=== PATIENT | female | born 1955 | race Caucasian/White ===

== ENCOUNTER 2016-08-18 15:22 | Inpatient (IN) | payer BC, OTHER ==
[2016-08-18] MEDS ORDERED: Heparin for STEMI(*) 5,000 UNITS/ML 1 ML VIAL IV ONE (15:23)
[2016-08-18] MEDS ORDERED: Ticagrelor* 90 MG TAB PO ONE (15:24)
[2016-08-18] MEDS ORDERED: Aspirin TAB* 325 MG PO ONE (15:24)
[2016-08-18] MEDS ORDERED: Iohexol 350 (CONTRAST) 200 ML MDV IV ONE (15:28)
[2016-08-18] MEDS ORDERED: nitroGLYCERIN DRIP* 250 ML ONE ×2 (15:28→16:02)
[2016-08-18] MEDS ORDERED: Heparin 2 UNITS/ML IVPREMIX* 3,000 ML IV ONE (15:28)
[2016-08-18] MEDS ORDERED: Lidocaine 1% INJ* 10 MG/ML 30 ML SDV ONE (15:28)
[2016-08-18] MEDS ORDERED: Bivalirudin(*) 250 MG VIAL ONE ×2 (15:31→16:41)
[2016-08-18] MEDS ORDERED: fentaNYL* 50 MCG/ML 2 ML VIAL (100 MCG VIAL) ONE (15:31)
[2016-08-18] MEDS ORDERED: Midazolam* 1 MG/ML 5 ML VIAL (5 MG) ONE (15:31)
[2016-08-18 15:46] LABS: Hematocrit 38 % (35-47); Hemoglobin 12.4 g/dl (12.0-16.0); Mean Corpuscular HGB Conc 32 g/dl (31-36); Mean Corpuscular Hemoglobin 27 pg (27-31); Mean Corpuscular Volume 85 fL (80-97); Mean Platelet Volume 9 um3 (7.4-10.4); Red Blood Count 4.54 10^6/ul (4.0-5.4); Red Cell Distribution Width 16 % (10.5-15); White Blood Count 9.9 10^3/ul (3.5-10.8)
[2016-08-18] MEDS ORDERED: LORazepam INJ* 2 MG/ML 1 ML VIAL ONE (15:52)
[2016-08-18 16:01] LABS: BUN/Creatinine Ratio 21.6 (8-20); Calcium 9.6 mg/dL (8.6-10.3); EGFR African American 75.1 (>60); EGFR Non-African American 58.4 (>60); Globulin 3.6 g/dL (2-4); Potassium 4.3 mmol/L (3.5-5.0); Total Bilirubin 0.5 mg/dL (0.2-1.0); Total Protein 7.6 g/dL (6.4-8.9)
[2016-08-18] MEDS ORDERED: Heparin(*) 1000 UNIT/ML 10 ML VIAL CATH LAB IV ONE (16:02)
[2016-08-18] MEDS ORDERED: VERAPAMIL 2.5 MG/ML 4 ML VIAL ONE (16:02)
[2016-08-18] MEDS ORDERED: Iodixanol* (CONTRAST) 320 MG/ML 100 ML SDV ONE ×2 (16:06→17:03)
[2016-08-18 16:07] LABS: Troponin I 0.77 ng/mL (<0.04)
--- NOTE | 2016-08-18 16:33 | ED ---
Lux Lemons Matthew, scribed for José Root MD on 08/18/16 at 1541 . HPI Cardiac - HPI Summary HPI Summary: A 61 y/o female presents to the ED after syncopating at 15:27. In route to the ED, an EKG was taken, which suggested a STEMI. Associated symptoms include vertigo, sudden dizziness, and syncope. The patient denies chest pain. The patient remembers feeling dizzy while pushing a cart at work before syncopating. She has a Hx of an aortic aneurysm, which is being followed by Dr. Morales at [facility]. She was at work, when the episode happened. 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 - History of Current Complaint Stated Complaint: STEMI Hx Obtained From: Patient Onset/Duration: Started Hours Ago, Atraumatic, Still Present Timing: Lasting Minutes Initial Severity: Moderate Current Severity: None Aggravating Factor(s): Nothing Alleviating Factor(s): Nothing Associated Signs and Symptoms: Positive: Dizziness, Other: - Dizziness; Vertigo. Negative: Chest Pain - Allergy/Home Medications Allergies/Adverse Reactions: Allergies Allergy/AdvReac Type Severity Reaction Status Date / Time No Known Allergies Allergy Verified 04/03/13 09:57 Home Medications: Home Medications Ibuprofen TAB* [Advil TAB*] 800 mg PO Q6H PRN 08/18/16 [History Confirmed ] Levothyroxine TAB* [Synthroid TAB*] 100 mcg PO QAM 08/18/16 [History Confirmed 08/18/16] PARoxetine HCL TAB* [Paxil TAB*] 40 mg PO QAM 08/18/16 [History Confirmed ] PMH/Surg Hx/FS Hx/Imm Hx Endocrine/Hematology History: Reports: Hx Thyroid Disease - HYPO - Cancer History Cancer Type, Location and Year: [facility] - Surgical History Surgery Procedure, Year, and Place: LYMPH NODE BIOPSYS, LUNG BIOPSY, CARPAL ESTEPHANIE, - Family History Family History: Unable to obtain, becaues of STEMI and severity. - Social History Occupation: Employed Full-time Lives: With Family Alcohol Use: None Hx Substance Use: No Substance Use Type: Reports: None Hx Tobacco Use: No Smoking Status (MU): Never Smoked Tobacco Review of Systems Constitutional: Negative Eyes: Negative ENT: Negative Cardiovascular: Negative Negative: Chest Pain Respiratory: Negative Gastrointestinal: Negative Genitourinary: Negative Musculoskeletal: Negative Skin: Negative Neurological: Other - Vertigo, Dizziness, Syncopal Psychological: Normal All Other Systems Reviewed And Are Negative: Yes Physical Exam Triage Information Reviewed: Yes Vital Signs On Initial Exam: Temp Pulse Resp BP Pulse Ox 98.2 F 85 18 110/75 100 08/18/16 15:27 08/18/16 15:27 08/18/16 15:27 08/18/16 15:27 08/18/16 15:27 Vital Signs Reviewed: Yes Appearance: Positive: No Pain Distress Skin: Positive: Warm, Skin Color Reflects Adequate Perfusion, Dry Head/Face: Positive: Normal Head/Face Inspection ENT: Positive: Normal ENT inspection Neck: Positive: Supple, Nontender Respiratory/Lung Sounds: Positive: Clear to Auscultation, Breath Sounds Present Cardiovascular: Positive: RRR Abdomen Description: Positive: Nontender, Soft Bowel Sounds: Positive: Present Musculoskeletal: Positive: Normal, Strength/ROM Intact Neurological: Positive: Alert, Oriented to Person Place, Time Psychiatric: Positive: Anxious Diagnostics - Vital Signs Vital Signs Temp Pulse Resp BP Pulse Ox 08/18/16 15:27 98.2 F 85 18 110/75 100 - Laboratory Lab Results: Lab Results 08/18/16 08/18/16 08/18/16 Range/Units 15:33 15:37 15:37 WBC 9.9 (3.5-10.8) 10^3/ul RBC 4.54 (4.0-5.4) 10^6/ul Hgb 12.4 (12.0-16.0) g/dl Hct 38 (35-47) % MCV 85 (80-97) fL MCH 27 (27-31) pg MCHC 32 (31-36) g/dl RDW 16 H (10.5-15) % Plt Count 245 (150-450) 10^3/ul MPV 9 (7.4-10.4) um3 Neut % (Auto) 63.9 (38-83) % Lymph % (Auto) 22.9 L (25-47) % Sumner % (Auto) 9.6 H (1-9) % Eos % (Auto) 3.4 (0-6) % Baso % (Auto) 0.2 (0-2) % Absolute Neuts (auto) 6.3 (1.5-7.7) 10^3/ul Absolute Lymphs (auto) 2.3 (1.0-4.8) 10^3/ul Absolute Monos (auto) 1.0 H (0-0.8) 10^3/ul Absolute Eos (auto) 0.3 (0-0.6) 10^3/ul Absolute Basos (auto) 0 (0-0.2) 10^3/ul Absolute Nucleated RBC 0 10^3/ul Nucleated RBC % 0 INR (Anticoag Therapy) 0.91 (0.89-1.11) APTT 33.5 (26.0-36.3) seconds Sodium (133-145) mmol/L Potassium (3.5-5.0) mmol/L Chloride (101-111) mmol/L Carbon Dioxide (22-32) mmol/L Anion Gap (2-11) mmol/L BUN (6-24) mg/dL Creatinine (0.51-0.95) mg/dL Est GFR ( Amer) (>60) Est GFR (Non-Af Amer) (>60) BUN/Creatinine Ratio (8-20) Glucose (70-100) mg/dL Lactic Acid (0.5-2.0) mmol/L Calcium (8.6-10.3) mg/dL Total Bilirubin (0.2-1.0) mg/dL AST (13-39) U/L ALT (7-52) U/L Alkaline Phosphatase (34-104) U/L Total Creatine Kinase (10-223) U/L CK-MB (CK-2) (0.6-6.3) ng/mL Myoglobin (14.3-65.8) ng/mL Troponin I (<0.04) ng/mL B-Natriuretic Peptide ( - 100) pg/mL Total Protein (6.4-8.9) g/dL Albumin (3.2-5.2) g/dL Globulin (2-4) g/dL Albumin/Globulin Ratio (1-3) LDL Cholesterol Direct mg/dL Blood Type A Positive Antibody Screen Negative 08/18/16 08/18/16 08/18/16 Range/Units 15:37 15:37 15:37 WBC (3.5-10.8) 10^3/ul RBC (4.0-5.4) 10^6/ul Hgb (12.0-16.0) g/dl Hct (35-47) % MCV (80-97) fL MCH (27-31) pg MCHC (31-36) g/dl RDW (10.5-15) % Plt Count (150-450) 10^3/ul MPV (7.4-10.4) um3 Neut % (Auto) (38-83) % Lymph % (Auto) (25-47) % Sumner % (Auto) (1-9) % Eos % (Auto) (0-6) % Baso % (Auto) (0-2) % Absolute Neuts (auto) (1.5-7.7) 10^3/ul Absolute Lymphs (auto) (1.0-4.8) 10^3/ul Absolute Monos (auto) (0-0.8) 10^3/ul Absolute Eos (auto) (0-0.6) 10^3/ul Absolute Basos (auto) (0-0.2) 10^3/ul Absolute Nucleated RBC 10^3/ul Nucleated RBC % INR (Anticoag Therapy) (0.89-1.11) APTT (26.0-36.3) seconds Sodium 132 L (133-145) mmol/L Potassium 4.3 (3.5-5.0) mmol/L Chloride 99 L (101-111) mmol/L Carbon Dioxide 26 (22-32) mmol/L Anion Gap 7 (2-11) mmol/L BUN 21 (6-24) mg/dL Creatinine 0.97 H (0.51-0.95) mg/dL Est GFR ( Amer) 75.1 (>60) Est GFR (Non-Af Amer) 58.4 (>60) BUN/Creatinine Ratio 21.6 H (8-20) Glucose 112 H (70-100) mg/dL Lactic Acid 1.3 (0.5-2.0) mmol/L Calcium 9.6 (8.6-10.3) mg/dL Total Bilirubin 0.50 (0.2-1.0) mg/dL AST 17 (13-39) U/L ALT 10 (7-52) U/L Alkaline Phosphatase 75 (34-104) U/L Total Creatine Kinase 90 (10-223) U/L CK-MB (CK-2) 7.9 H (0.6-6.3) ng/mL Myoglobin 48.0 (14.3-65.8) ng/mL Troponin I 0.77 H* (<0.04) ng/mL B-Natriuretic Peptide 114 H ( - 100) pg/mL Total Protein 7.6 (6.4-8.9) g/dL Albumin 4.0 (3.2-5.2) g/dL Globulin 3.6 (2-4) g/dL Albumin/Globulin Ratio 1.1 (1-3) LDL Cholesterol Direct 87 mg/dL Blood Type Antibody Screen Result Diagrams: 08/18/16 15:37 08/18/16 15:37 Lab Statement: Any lab studies that have been ordered have been reviewed, and results considered in the medical decision making process. - EKG 15:20 Cardiac Rate: Tachycardia - 104 bpm EKG Interpretation: 1mm ST elevation in leads III Disposition - Course Assessment/Plan: ADMIT TO DRAFTSPERSON STABLE DR RAMIREZ. - Diagnoses Provider Diagnoses: STEMI (ST elevation myocardial infarction) During the Visit The Following Alert/Code Occurred: STEMI Discharge - Discharge Plan Condition: Stable Disposition: ADMITTED TO [facility] The documentation as recorded by the Lux joseph Matthew accurately reflects the service I personally performed and the decisions made by me, José Root MD.
[2016-08-18] MEDS ORDERED: Nitroglycerin TAB 0.4 MG* 0.4 MG TAB SL PRN (17:20)
[2016-08-18] MEDS ORDERED: NS 0.9% 1000 ML* 1,000 ML IV SCH (17:30)
[2016-08-18] MEDS ORDERED: Metoprolol Tartrate TAB* 25 MG ONE (17:56)
[2016-08-18] MEDS ORDERED: Atorvastatin* 80 MG TAB ONE (17:57)
[2016-08-18] MEDS ORDERED: Metoprolol Tartrate TAB* 25 MG PO SCH (18:00)
[2016-08-18] MEDS: Atorvastatin* 80 MG TAB PO SCH (18:02)
[2016-08-18] MEDS: LORazepam INJ* 2 MG/ML 1 ML VIAL IV PUSH PRN (18:36)
[2016-08-18 18:37] LABS: TSH (Thyroid Stimulating Horm) 4.79 mcIU/mL (0.34-5.60)
--- NOTE | 2016-08-18 19:15 | RAD ---
Indication: Hypoxemia. STEMI. Comparison: September 18, 2010 Technique: Supine AP 1832 hours Report: Cardiomegaly. Mildly prominent ill-defined central pulmonary vasculature and diffuse mild prominence of the interstitial markings. Grossly clear pleural spaces. RIGHT hilar surgical clips. IMPRESSION: Limited supine exam with suggestion of pulmonary vascular congestion and interstitial edema given the clinical context.
--- NOTE | 2016-08-18 20:02 | CONS ---
CONSULTATION REPORT: DATE OF CONSULT: 08/18/16 REQUESTING PHYSICIAN FOR CONSULTATION: Dr. Whitten. PRIMARY CARE PROVIDER: [facility] in [place]. REASON FOR MEDICAL CONSULTATION: Evaluation and management of comorbid medical conditions. CHIEF COMPLAINT: Syncope. HISTORY OF PRESENT ILLNESS: I refer you to Dr. Whitten's H and P for further details. In short, Ms. Branch is a 61-year-old female patient. She has a history of morbid obesity, hypothyroidism, depression, Hodgkin's lymphoma, history of a thoracic aneurysm measuring 3.7 cm and follows with her primary, history of arthritis, anxiety, depression, and eating disorder according to the daughter. She comes in today. She was at work and she experienced she was feeling nauseous and somewhat diaphoretic. She had an episode where she felt very lightheaded. She had some parts in her hands. She handed it to a co- worker. She tried to sit down, but the next thing she knew she looked up and the co-workers were standing over her. They checked her pulse and it was noted to be in the 40s. They called 911 immediately. There was an EKG obtained en route and it was diagnostic of STEMI. STEMI was called and the patient was taken to the catheterization laboratory. The patient states the events leading up to this, she did not have any chest pain prior to or after this event. She just felt a bit nauseous. She states that she had been feeling nauseous off and on the last couple days and mostly when she ate something. She states that she had not had any chest pain and had never passed out before. She denied having any recent fevers or chills. No changes in medications. States that she had been feeling okay up until the last couple of days. She denied having any shortness of breath. She denied having any cough. No diarrhea. No vomiting. She was taken to the catheterization laboratory. She did have intervention done. I will refer you to Dr. Whitten's report for details. The patient did carry a history of anxiety, depression, and hypothyroidism and we were asked to evaluate. She was evaluated in the postcath setting. She says she feels anxious at this point. She denies having any chest discomfort. She says she is feeling trouble with some shortness of breath. She denies having any abdominal discomfort and denies having anymore nausea. She states she feels better than when she came in. PAST MEDICAL HISTORY: Significant for: 1. Coronary artery disease, new diagnosis at this admission. 2. AR, new diagnosis at this admission. 3. Hypothyroidism. 4. Depression. 5. Anxiety. 6. Eating disorder. 7. Thoracic aneurysm. 8. Arthritis. 9. Hodgkin's lymphoma. SURGICAL HISTORY: 1. She has had a cardiac catheterization done today. 2. Lung biopsy. HOME MEDICATIONS: According to the list that we obtained include: 1. Paxil 40 mg daily. 2. Synthroid 100 mcg daily. 3. Ibuprofen 800 mg p.o. every 6 hours as needed. 4. Albuterol 2 puffs inhaled every 4 hours as needed. ALLERGIES TO MEDICATIONS: Include no known drug allergies. FAMILY HISTORY: Mother had a pacemaker for sick sinus syndrome. Father had a history of CVA. SOCIAL HISTORY: She does not smoke. She does not drink. Surrogate decision maker is her daughter, Mariluz. She is a nurse practitioner. REVIEW OF SYSTEMS: There is no documented fever. She denied having any significant weight change. There was no double vision. There is no ear discharge. There is no rhinorrhea. There is no sore throat. No thyroid enlargement. She denies having any chest pain currently. There is shortness of breath. No orthopnea. No nocturnal dyspnea. There is no abdominal pain. No nausea. No vomiting. No dysuria. No frequency. No loss of consciousness. No pruritus. No skin ulcerations. Review of 14 systems completed, all others negative. PHYSICAL EXAMINATION: Reveals vital signs of blood pressure 107/64 with a pulse of 87, respirations 18, O2 sat 99%, she is now on room air. Her temperature was 97.6. Generally, at this time, Ms. Branch is a 61-year-old female patient. She is lying flat in the ICU bed postcath. She is awake, alert , does not appear to be in any acute distress. HEENT: Head atraumatic and normocephalic. Eyes: EOMs intact. Sclerae are anicteric. Throat: Oral mucosa appears to be moist. No oropharyngeal erythema. Neck: Supple. Heart: Sounds S1, S2. Regular rate and rhythm. Lungs are clear to auscultation bilaterally. It is a limited exam as she cannot sit up. She is flat because of the cath. Abdomen: Soft, flat, nontender. Bowel sounds present. Extremities : Distal CSM checks are intact in the bilateral lower extremities. Distal CSM checks are intact to the right upper extremity as well. She cannot move the extremities currently because she is lying flat per the postcath protocol. Neurologically, she is awake, alert, and oriented x3. She had no gross focal deficits. Skin is intact. She has a radial access site which is clean, dry, and intact to the right wrist and also to the right groin. There is an access site and puncture site is clean, dry, and intact. No bleeding was noted. DIAGNOSTIC STUDIES/LAB DATA: Today revealed WBC of 9.9, RBC of 4.54, hemoglobin 12.4, hematocrit 38, platelet count 245. INR was 0.91. PTT of 32.5. Sodium was 132, potassium of 4.3, chloride 99, bicarb 26, BUN 21, creatinine of 0.97, glucose 112, lactic 1.3, calcium 9.6. Total bili 0.5, AST 17, ALT 10, alk phos 75, CK 90, CK-MB 7.9. Troponin 0.77. BNP of 114. Albumin of 4.0. LDL was 87. TSH is pending. She did have an EKG obtained here today, which showed a normal sinus rhythm with PAC, it is a difficult tracing because there is a lot of artifact, and no ST elevations were noted here. I do not have access to the EKG from the ambulance. At this point, we will try to obtain that. Chest x-ray is pending. Old medical records were reviewed. ASSESSMENT AND PLAN: Ms. Branch is a 61-year-old female patient coming in to the ER today with complaints of syncope. On evaluation by the EMS, was found to have EKG diagnosed with a ST elevation myocardial infarction. She was taken to laboratory technologist, underwent intervention. I refer you to Dr. Whitten's report for details. Hospitalist service was asked to evaluate and consult for management of other medical problems. My recommendations at this point are: 1. ST elevation myocardial infarction and coronary artery disease: We will defer the management of this to Dr. Whitten and his team. 2. Syncope: At this point, I would recommend an echo, which Dr. Whitten is obtaining. We will place her on telemetry. We will continue to monitor. When she is able, we probably can check orthostatic blood pressures. 3. Hypothyroidism: Checking a TSH. Continue Synthroid. 4. Depression/anxiety: We will continue her Paxil. I have ordered p.r.n. lorazepam and will follow. 5. History of thoracic aneurysm: She can follow with her primary. We will monitor. She is not having any chest discomfort at this point. 6. History of eating disorder: She can follow with her primary. 7. Arthritis: She was on ibuprofen. She will need to stop this and switch to Tylenol as she will be on blood thinners. The ibuprofen again may increase her risk for GI bleed while being on Brilinta and aspirin. 8. Hodgkin's lymphoma: Follow up with the primary. 9. DVT prophylaxis: We will defer to Dr. Whitten and his team. 10. Fluids, electrolytes, and nutrition: I would recommend a heart healthy diet. 11. Code status: Full code. TIME SPENT: Time spent on the consult was 60 minutes; greater than half the time was spent [id number] with the patient obtaining my history and physical, other half the time spent going over the plan of care with the patient and implementing plan of care. I did discuss the plan of care with my attending, Dr. Julio; she is in agreement. WANDA ANTHONY NP ADDENDUM TO CONSULTATION REPORT: DATE OF CONSULTATION: 08/18/16 Mrs. Branch is a 61-year-old female who came in after a syncopal episode, was diagnosed with ST elevation AR and urgently taken for cardiac catheterization. Post cardiac catheterization, a consult was requested by Dr. Whitten in regards to patient's history of anxiety and hypothyroidism. For further details of patient's presentation and plan, please see consultation report dictated by Javier Anthony on 08/18/16 with which I agree. ADY JULIO MD CC: Dr. Whitten; [facility] in [place]* [id number]/[facility] #: [id number]/[facility] #: [id number] MTDDestiny
--- NOTE | 2016-08-18 20:18 | CONS ---
CONSULTATION REPORT: ADDENDUM: DATE OF CONSULTATION: 08/18/16 Mrs. Branch is a 61-year-old female who came in after a syncopal episode, was diagnosed with ST elev ation [facility] and urgently taken for cardiac catheterization. Post cardiac catheterization, a consult was requested by Dr. Whitten in regards to patient's history of anxiety and hypothyroidism. For further details of patient's presentation and plan, please see consultation report dictated by Javier chris on 08/18/16 with which I agree. [id number]/[facility] #: [id number]
[2016-08-18] MEDS: Ticagrelor* 90 MG TAB PO SCH (21:11)
[2016-08-18 21:53] LABS: Troponin I 1.52 ng/mL (<0.04)
[2016-08-19] MEDS: LORazepam INJ* 2 MG/ML 1 ML VIAL IV PUSH PRN ×2 (01:20→21:30)
[2016-08-19 06:02] LABS: Hematocrit 34 % (35-47); Hemoglobin 11.1 g/dl (12.0-16.0); Mean Corpuscular HGB Conc 33 g/dl (31-36); Mean Corpuscular Hemoglobin 28 pg (27-31); Mean Corpuscular Volume 84 fL (80-97); Mean Platelet Volume 9 um3 (7.4-10.4); Red Blood Count 4.02 10^6/ul (4.0-5.4); Red Cell Distribution Width 16 % (10.5-15); White Blood Count 9.4 10^3/ul (3.5-10.8)
[2016-08-19 06:13] LABS: Albumin 3.6 g/dL (3.2-5.2); BUN/Creatinine Ratio 19.7 (8-20); EGFR African American 99.5 (>60); EGFR Non-African American 77.4 (>60); HDL Cholesterol 38.8 mg/dL; Total Bilirubin 0.9 mg/dL (0.2-1.0); Total Protein 6.6 g/dL (6.4-8.9)
[2016-08-19] MEDS: PARoxetine HCL TAB* 40 MG PO SCH (08:48)
[2016-08-19] MEDS: Aspirin Low Dose CHEW TAB* 81 MG PO SCH (08:48)
[2016-08-19] MEDS: Ticagrelor* 90 MG TAB PO SCH ×2 (08:49→21:29)
[2016-08-19] MEDS: Levothyroxine TAB* 100 MCG TAB PO SCH (08:49)
--- NOTE | 2016-08-19 09:27 | ECHO ---
Patient: SEBASTIÁN MOORE [facility] Rec#: [id number] : 1955 Date: 08/19/2016 Age: 61y Height: 170.18 cm / 67.0 in Weight: 151.5 kg / 333.9 lbs Sex: F BSA: 2.51 Room#: ICU-2 Admit Date#: 08/18/2016 Type: Inpatient Referring: Yasmani Whitten MD Reading: Yasmani Whitten MD Injection Press Operator: Aracelis Wisdom [facility] Transthoracic Echocardiogram Indication: STEMI BP: 131/81 HR: 92 Rhythm: A-Fib Findings History: STEMI 08/18/2016 with PCI,MO,hypothyroid,depression,Hodgkins,thoracic aortic 3.7cm,nonsmoker. Technical Comments: The study is technically limited due to patient body habitus. Completed at 0852. Left Ventricle: Mild to moderate concentric left ventricular hypertrophy is observed. Left ventricular systolic function is at the lower limits of normal. The estimated ejection fraction is 50-55%. Visually estimated LVEF 55 %. Abnormal left ventricular diastolic filling is observed, consistent with impaired relaxation. Left Atrium: The left atrium is slightly dilated. Right Ventricle: Moderator Band present. The right ventricular cavity size is normal. Right Atrium: The right atrial cavity size is normal. Aortic Valve: The aortic valve is trileaflet. The aortic valve leaflets are moderately thickened. Systolic excursion of the aortic valve cusps is reduced. There is mild to moderate aortic regurgitation. There is mild aortic stenosis. The mean gradient of the aortic valve is 10.1 mmHg. The aortic valve area, by VTI's, is calculated at 1.2 cm2. The highest aortic valve velocity was obtained with the standard probe from the A5C view. Mitral Valve: The mitral valve leaflets are mildly thickened. There is mild to moderate mitral regurgitation. There is no evidence of mitral stenosis. Tricuspid Valve: The tricuspid valve leaflets are normal. There is mild tricuspid regurgitation. Unable to estimate the right ventricular systolic pressure. There is evidence that pulmonary hypertension may be underestimated. There is no tricuspid stenosis. Pulmonic Valve: The pulmonic valve appears normal. There is moderate pulmonic regurgitation. There is no pulmonic stenosis. Pericardium: A pericardial fat pad is visualized. Aorta: There is mild dilatation of the ascending aorta. There is no dilatation of the aortic arch. There is mild dilatation of the aortic root. Pulmonary Artery: The main pulmonary artery appears normal. Venous: The venous system is not well visualized. Conclusions Mild to moderate concentric left ventricular hypertrophy is observed. Visually estimated LVEF 55 %. Abnormal left ventricular diastolic filling is observed, consistent with impaired relaxation. There is mild to moderate aortic regurgitation. There is mild aortic stenosis. There is mild to moderate mitral regurgitation. There is mild tricuspid regurgitation. There is moderate pulmonic regurgitation. There is mild dilatation of the ascending aorta. There is mild dilatation of the aortic root. No reports of prior studies offered for comparison. Measurements Name Value Normal Range RVIDd (AP) 2D 3.5 cm (0.9 - 2.6) RVDdMajor (2D) 4.3 cm (2.2 - 4.4) RAd ISD 4CH 5.2 cm (3.4 - 4.9) RA (A4C)W 3.5 cm (2.9 - 4.6) IVSd (2D) 1.2 cm (0.6 - 1) LVPWd (2D) 1.3 cm (0.6 - 1) LVIDd (2D) 3.9 cm (3.6 - 5.4) LVIDs (2D) 3.1 cm - LV FS (2D) 21 % (25 - 45) Aortic Annulus 2.1 cm (1.4 - 2.6) Ao root diameter (2D) 3.7 cm (2.1 - 3.5) Ascending Ao 3.6 cm (2.1 - 3.4) Aortic arch 3 cm (1.8 - 3.4) Descending Ao 0.6 cm - LA dimension (AP) 2D 4 cm (2.3 - 3.8) LAd ISD 4CH 6.3 cm (2.9 - 5.3) LA ISD 4CH W 3.6 cm (2.5 - 4.5) Name Value Normal Range LA ESV SP 4CH (A/L) 55 ml - LA ESV SP 2CH (A/L) 49 ml - LA ESV BP (A/L) 52 ml - LA ESV BP (A/L) index 20.73 ml/m2 - LA ESV SP 4CH (MOD) 51 ml - LA ESV SP 2CH (MOD) 46 ml - Name Value Normal Range MV E-wave Vmax 1.5 m/sec - MV deceleration time 185 msec - LV septal e' Vmax 0.1 m/sec - LV lateral e' Vmax 0.14 m/sec - LV E:e' septal ratio 15 ratio - LV E:e' lateral ratio 10.71 ratio - Name Value Normal Range AV Vmax 2.1 m/sec - AV VTI 43 cm - AV peak gradient 18.45 mmHg - AV mean gradient 10.1 mmHg - LVOT diameter 2 cm - LVOT Vmax 0.9 m/sec - LVOT VTI 16.9 cm - LVOT peak gradient 3.3 mmHg - LVOT mean gradient 1.5 mmHg - JOSE (continuity Vmax) 1.3 cm2 - JOSE (continuity VTI) 1.2 cm2 - AR PHT 490 msec - AR peak gradient 55.61 mmHg - Name Value Normal Range TR Vmax 2.6 m/sec - TR peak gradient 27 mmHg - RAP 8 mmHg - RVSP 35 mmHg - Name Value Normal Range PV Vmax 0.7 m/sec - PV peak gradient 2.17 mmHg - [place] BAS Normal BA Normal BAL Normal EUSEBIA Normal BI Normal BIS Normal MAS Normal MA Normal MAL Normal MIL Normal AK Normal MIS Normal Normal AA Normal AL Normal AI Normal APEX Normal
--- NOTE | 2016-08-19 10:30 | HP ---
AMENDED REPORT TO CORRECT FAMILY PHYSICIAN NAME HISTORY AND PHYSICAL: DATE OF ADMISSION: 08/18/16 CHIEF COMPLAINT: The patient with a syncopal episode and an abnormal EKG suggesting transient ST-segment elevation to the inferior wall. HISTORY OF PRESENT ILLNESS: The patient is a 61-year-old female with no prior known cardiac history. Specifically, she denied any history of myocardial infarction, congestive heart failure, or significant heart rhythm disturbance. She has a history of a mildly dilated ascending aorta anywhere from 3.7 to 4.2 mm. She was at work today and started feeling poorly and felt like she needed to go to the bathroom. She got nauseated and somewhat diaphoretic and when she tried to sit down, there was a report that she passed out. That is uncertain if she definitely lost consciousness. Co-workers checked her heart pulse and found to be in the 40s. Paramedics arrived and an EKG obtained by them showed ST -segment elevation in the inferior leads. Of note, there were other EKGs performed by them that did not have as impressive ST-segment changes. When she reached the emergency room, a repeat EKG was performed, which did not show the acute ST-segment elevations. She was hysterical within the emergency room, very anxious in nature, and it took quite a while to calm her down and eventually discussed the issue about proceeding with cardiac catheterization. She stated with the nauseous and diaphoretic feeling, she felt somewhat short of breath. She denied any significant abdominal discomfort and denied any severe back discomfort. The risks and benefits of cardiac catheterization were explained to her and as such a recommendation was made in order to perform cardiac catheterization to definitively rule out or rule in the presence of critical coronary artery disease, especially the right coronary artery. She agreed to this and as such we proceeded to the catheterization laboratory technician. PAST MEDICAL HISTORY: Incudes hypothyroidism, depression, anxiety, eat disorder , ascending aortic aneurysms as described above, arthritis, and prior Hodgkin disease. PAST SURGICAL HISTORY: She has reportedly a history of lung biopsy. MEDICATIONS AT HOME: Include: 1. Paxil 40 mg daily. 2. Synthroid 100 mcg a day. 3. She was taking ibuprofen and an albuterol inhaler as needed, although I do note know of the definitive diagnosis of asthma. ALLERGIES: She has no known drug allergies. REVIEW OF SYSTEMS: Pertinent to proceeding directly to the cardiovascular laboratory on an emergent basis include no history of TIA or stroke. No history of hematochezia, hematuria, or hematemesis. No history of any dye allergy. No history of renal insufficiency. Please refer to the nursing consultant's review of systems for the other aspects, which were reviewed. PHYSICAL EXAMINATION VITAL SIGNS: In the emergency room revealed vital signs: Blood pressure 110/75 , pulse 85, respirations 18, and O2 saturation 100% on oxygen. HEENT: Conjunctivae were pink. Sclerae clear. Mouth revealed moist mucosa. NECK: Neck was supple. No increased JVP. Carotid without bruit. LUNGS: Revealed no accessory muscle usage. There was poor excursion as she was markedly anxious. I did not appreciate any significant rales or rhonchi. HEART: Revealed no visible heaves. No palpable heaves or thrills. Heart sounds in general were quite distant to the mass and significant obesity. ABDOMEN: Was massively obese. I could not access accurately for organomegaly. There was extensive pannus. EXTREMITIES: Peripheral pulses were intact. Femoral pulses were present, but deep without bruits. NEUROLOGIC: The patient appeared alert and oriented. MUSCULOSKELETAL: The patient moves all extremities appropriate. PSYCHOLOGICAL: The patient was profoundly anxious and difficult to calm down. DIAGNOSTIC STUDIES/LAB DATA: Laboratory results were pending at the time of taking her to the cardiovascular laboratory. Assessment of the repeat EKG performed in the emergency room on 08/18/16 at time 1520 hours revealed sinus rhythm with frequent PACs, NM interval was 0.15, QRS was 0.10, QT was 0.38, and axis was -38 degrees. There was question of minimal ST- segment elevation in lead III, but no significant elevation in II or AVF compared to the EKG by the paramedics. There was minimal slight horizontal nature to the ST- segments in I and AVL, but no significant depression at 80 milliseconds after the J- point. There was artifact in the V4 through 6 leads. OVERALL ASSESSMENT: Randi presents with an EKG demonstrating reversible ST- segment elevation. At this point in time, clearly we need to rule out the presence of critical coronary artery disease, especially involving the right coronary artery. The risks and benefits were explained to her and her . She understands them and wished to proceed. The patient has already received aspirin, 4000 units of heparin, and Brilinta 180 mg. Further management will be made pending on the the results of cardiac catheterization. CC: Dr. Cartagena [place] the [place], [place]* [id number]/CPS #: [id number] [facility]ITAL[facility]
[2016-08-19 11:31] LABS: Troponin I 1.76 ng/mL (<0.04)
--- NOTE | 2016-08-19 11:37 | CATH ---
AMENDED REPORT TO CORRECT FAMILY PHYSICIAN NAME CARDIAC CATHETERIZATION AND INTERVENTIONAL REPORT: DATE OF PROCEDURE: 08/18/16 - Inpatient room #CPI73-76 FAMILY PHYSICIAN: Dr. Lexy Cartagena MD INDICATION FOR THE PROCEDURE: The patient with syncopal episode and transient ST- segment elevations in the inferior leads suggesting the presence of critical coronary artery disease involving the artery to the inferior wall, possibly right coronary artery. PROCEDURE: Coronary arteriography, primary stenting of the proximal to ostial right coronary artery utilizing a 3.5 x 16 mm long Synergy drug-eluting stent post dilated to 3.65 mm with high pressure balloon inflation, left heart catheterization. DESCRIPTION OF PROCEDURE: The patient was examined and interviewed in the emergency room where the risks and benefits were explained to her and her . They understood them and wished to proceed. The patient was brought to the cardiovascular laboratory where a formal time-out was performed. The right radial artery was assessed by ultrasound and initially found to be acceptable as an approach. The patient was prepped and draped in sterile fashion and the right radial artery area was anesthetized with 1% lidocaine. The right radial artery was cannulated and a 6-[place] Glidesheath was placed followed by injection of the radial artery cocktail including 3000 units of heparin, 3 mg of verapamil, and 300 mcg of nitroglycerin. Following this, attempts at coronary arteriography performed utilizing a 5-[place] TIG4 curve catheter. Of note, only the right coronary artery could accept and could be cannulated well and there was difficulty with torquing this catheter. Given the critical nature of the proximal right coronary artery, the decision was made to proceed from the right groin area for the rest of the procedure. The catheter was moved and the right radial artery sheath was kept in place to be removed at the end of the case. The right groin area was anesthetized with 1% lidocaine and right femoral artery was cannulated with an anterior wall stick and a 6-[place]ank[place] introducer was placed. The sheath was a 6.5 curve sheath in the right femoral artery. Coronary arteriography was completed utilizing a 5- [place] FL4 curve diagnostic catheter. The left coronary artery was visualized utilizing a 5-[place] FL4 curve left coronary catheter. Following this, the decision was made to intervene into the proximal to ostial right coronary artery. Guiding views were obtained using a 6-[place] FR4 curve guide catheter. The patient received an Angiomax bolus and Angiomax drip was started. The patient received 180 mg of Brilinta already in the emergency room and had received aspirin as well. An 0.014 wire was advanced down the right coronary artery and primary stenting was performed utilizing a 3.5 x 16 mm long Synergy drug-eluting stent post dilated to 3 to 3.65 mm with high pressure balloon inflations utilizing a 3.5 x 8 mm long NC Emerge balloon. Following this, left heart catheterization was performed utilizing a 5-[place] angled pigtail catheter. After this, an injection was made into the right femoral sheath to assess eligibility to utilize closure device. It was found to be acceptable for this and as such a 6/7-[place] Mynx closure device was deployed with good hemostasis. A right radial artery Vasc Band was placed for hemostasis in the right radial artery. The patient was transported to the intensive care unit in stable condition. The total contrast used 180 cc visipaque. Radiation exposure included 17 minutes of fluoro time, air karma was 2661, DAP radiation was 24478. RESULTS: HEMODYNAMIC DATA: A. Left heart catheterization. Central aortic pressure was recorded at 136 over the left ventricular end diastolic pressure of 25 mmhg. Central aortic pressure was recorded at 132/80 with a mean of 108. CORONARY ARTERIOGRAPHY: A. Right coronary artery - A critical 85% to 90% ulcerated appearing lesion (ruptured plaque) appearance lesion was noted in the proximal to ostial right coronary artery. The mid portion of the right coronary artery had a 25% to 30% narrowing. This artery supplied the PDA and posterior left ventricular branches. B. Left coronary artery. 1. Left main: Short nature and widely patent. 2. Left anterior descending artery. The proximal portion of the left anterior descending artery had mild 25% to 30% narrowing with calcification. The mid portion of left anterior descending artery had an abrupt caliber change with the rest of both the left anterior descending artery and the diagonal branch artery appearing of uniform caliber, but compared to the proximal portion being narrowed at least 60%. There were no significant obstructions in the rest of the left anterior descending artery or the mid diagonal branch. 3. Circumflex artery - supplying a thin 1st obtuse marginal branch followed by two moderate sized bifurcating obtuse marginal branches to the mid to low posterior wall extending toward lateral apical region. No significant disease was noted. INTERVENTION INTO PROXIMAL TO OSTIAL RIGHT CORONARY ARTERY: Successful reduction of critical 85% to 90% ruptured plaque area with primary stenting and high pressure balloon inflation with reduction of the 85% to 90% lesion with residual stenosis of 10%, JORDAN-III flow and no dissection seen. OVERALL ASSESSMENT: Significant critical proximal to ostial right artery artery lesion with a transient ST segment elevation producing a non-STEMI treated with intervention as described above. Moderate bordering on significant disease in mid LAD for now will be treated medically with evaluation performed at a later date most likely by stress testing. Unfortunately, the caliber of the distal vessel never becomes larger such as to suggest the ability to place a stent within that area. Aggressive risk factor management including weight reduction, cholesterol lowering, and screening for blood pressure and diabetes will be pursued. CC: [facility] in [place], Dr. Cartagena* [id number]/[facility] #: [id number] MTDD
--- NOTE | 2016-08-19 13:00 | PN ---
Subjective Date of Service: 08/19/16 Interval History: HOSPITALIST PROGRESS NOTE Patient seen and examined at bedside. She feels well today. Denies CP, palpitations, was able to ambulate to the toilet with no dizziness or lightheadedness. Tolerating diet well. Family History: Unchanged from Admission Social History: Unchanged from Admission Past Medical History: Unchanged from Admission Objective Active Medications: Aspirin (Aspirin Low Dose Tab*) 81 mg PO DAILY [facility] Last Admin: 08/19/16 08:48 Dose: 81 mg Atorvastatin Calcium (Lipitor*) 80 mg PO 1700 [facility] Last Admin: 08/18/16 18:02 Dose: 80 mg Levothyroxine Sodium (Synthroid Tab*) 100 mcg PO QAM [facility] Last Admin: 08/19/16 08:49 Dose: 100 mcg Lorazepam (Ativan Inj*) 1 mg IV PUSH Q6H PRN PRN Reason: ANXIETY Last Admin: 08/19/16 01:20 Dose: 1 mg Metoprolol Tartrate (Lopressor Tab*) 12.5 mg PO BID [facility] Nitroglycerin (Nitroglycerin Tab 0.4 Mg*) 0.4 mg SL Q5M PRN PRN Reason: ANGINA Paroxetine HCl (Paxil Tab*) 40 mg PO QAM [facility] Last Admin: 08/19/16 08:48 Dose: 40 mg Ticagrelor (Brilinta*) 90 mg PO BID [facility] Last Admin: 08/19/16 08:49 Dose: 90 mg Vital Signs 08/19/16 08/19/16 08/19/16 10:00 10:15 11:00 Temperature 98.4 F Pulse Rate 99 90 91 Respiratory 23 18 20 Rate Blood Pressure 120/72 114/64 113/75 (mmHg) O2 Sat by Pulse 95 96 96 Oximetry Oxygen Devices in Use Now: Nasal Cannula Appearance: Morbid obese lady sitting up in bed in [facility]. Eyes: No Scleral Icterus Ears/Nose/Mouth/Throat: Mucous Membranes Moist Neck: Trachea Midline Respiratory: Symmetrical Chest Expansion and Respiratory Effort, Clear to Auscultation Cardiovascular: RRR - Normal S1 and S2 Extremities: - - Bilateral LE moderate edema Neurological: Alert and Oriented x 3, NL Muscle Strength and Tone Lines/Tubes/Other Access: Clean, Dry and Intact Peripheral IV Nutrition: Taking PO's Result Diagrams: 08/19/16 05:15 08/19/16 05:15 Assess/Plan/Problems-Billing Assessment: Mrs. Branch is a 61yo F with PMH of morbid obesity with BMI 52, anxiety, depression, hypothyroidism, ascending aorta aneurysm, who presented to ED after a syncopal episode, found to have a STEMI. - Patient Problems (1) STEMI (ST elevation myocardial infarction) Comment: - S/p stent to RCA and medical management for moderate LAD disease. - Continue Aspirin, Brillinta, Atorvastatin. - Beta-aure on hold for now due to episodes of bradycardia and possible 2nd degree AVB. - Management as per Cardiology. (2) Anxiety Comment: - Appears to be controlled at this time. - Continue Paxil and Lorazepam PRN. (3) Hypothyroidism Comment: - TSH is 4.7 - continue Levothyroxine. (4) Morbid obesity Comment: - May benefit of referral to [facility] on discharge. (5) DVT prophylaxis Comment: - SQ heparin. (6) Full code status Status and Disposition: Inpatient for management of STEMI.
[2016-08-19] MEDS: Atorvastatin* 80 MG TAB PO SCH (17:54)
[2016-08-19] MEDS ORDERED: Metoprolol Tartrate TAB* 25 MG PO SCH (21:00)
[2016-08-19] MEDS: Heparin VIAL(*) 5000 UNITS/ML VIAL (FIVE THOUSAND) SUBCUT SCH (21:29)
[2016-08-20 04:59] LABS: Troponin I 1.42 ng/mL (<0.04)
[2016-08-20] MEDS: Heparin VIAL(*) 5000 UNITS/ML VIAL (FIVE THOUSAND) SUBCUT SCH ×3 (06:04→22:12)
[2016-08-20] MEDS: Ticagrelor* 90 MG TAB PO SCH ×2 (08:08→20:58)
[2016-08-20] MEDS: Levothyroxine TAB* 100 MCG TAB PO SCH (08:08)
[2016-08-20] MEDS: Aspirin Low Dose CHEW TAB* 81 MG PO SCH (08:08)
[2016-08-20] MEDS: PARoxetine HCL TAB* 40 MG PO SCH (09:12)
[2016-08-20] MEDS ORDERED: ALPRAZolam TAB* 0.25 MG PO PRN (11:51)
--- NOTE | 2016-08-20 17:15 | PN ---
Subjective Date of Service: 08/20/16 Interval History: HOSPITALIST PROGRESS NOTE Patient seen and examined at bedside. She felt well this AM when I saw her, but as they went on she started to c/o dyspnea, felt anxious about going home and was transferred to . Family History: Unchanged from Admission Social History: Unchanged from Admission Past Medical History: Unchanged from Admission Objective Active Medications: Alprazolam (Xanax Tab*) 0.25 mg PO Q8H PRN PRN Reason: ANXIETY Aspirin (Aspirin Low Dose Tab*) 81 mg PO DAILY [facility] Last Admin: 08/20/16 08:08 Dose: 81 mg Atorvastatin Calcium (Lipitor*) 80 mg PO 1700 [facility] Last Admin: 08/19/16 17:54 Dose: 80 mg Heparin Sodium (Porcine) (Heparin Vial(*)) 5,000 units SUBCUT Q8HR [facility] Last Admin: 08/20/16 14:19 Dose: 5,000 units Levothyroxine Sodium (Synthroid Tab*) 100 mcg PO QAM [facility] Last Admin: 08/20/16 08:08 Dose: 100 mcg Lorazepam (Ativan Inj*) 1 mg IV PUSH Q6H PRN PRN Reason: ANXIETY Last Admin: 08/19/16 21:30 Dose: 1 mg Nitroglycerin (Nitroglycerin Tab 0.4 Mg*) 0.4 mg SL Q5M PRN PRN Reason: ANGINA Paroxetine HCl (Paxil Tab*) 40 mg PO QAM [facility] Last Admin: 08/20/16 09:12 Dose: 40 mg Ticagrelor (Brilinta*) 90 mg PO BID [facility] Last Admin: 08/20/16 08:08 Dose: 90 mg Vital Signs 08/20/16 08/20/16 08/20/16 14:00 15:27 16:36 Temperature 97.7 F Pulse Rate 103 102 114 Respiratory 24 20 Rate Blood Pressure 97/68 117/75 (mmHg) O2 Sat by Pulse 97 96 98 Oximetry Oxygen Devices in Use Now: Nasal Cannula Appearance: Morbid obese lady sitting up in a chair in [facility]. Eyes: No Scleral Icterus Ears/Nose/Mouth/Throat: Mucous Membranes Moist Neck: Trachea Midline Respiratory: Symmetrical Chest Expansion and Respiratory Effort, Clear to Auscultation Cardiovascular: RRR - Normal S1 and S2 Abdominal: NL Sounds; No Tenderness; No Distention Extremities: - - Bilateral LE edema Neurological: Alert and Oriented x 3, NL Muscle Strength and Tone Lines/Tubes/Other Access: Clean, Dry and Intact Peripheral IV Nutrition: Taking PO's Result Diagrams: 08/19/16 05:15 08/19/16 05:15 Assess/Plan/Problems-Billing Assessment: Mrs. Branch is a 61yo F with PMH of morbid obesity with BMI 52, anxiety, depression, hypothyroidism, ascending aorta aneurysm, who presented to ED after a syncopal episode, found to have a STEMI. - Patient Problems (1) STEMI (ST elevation myocardial infarction) Comment: - S/p stent to RCA and medical management for moderate LAD disease. - Continue Aspirin, Brillinta, Atorvastatin. - No beta-aure for now due to episodes of bradycardia. - Management as per Cardiology. (2) Anxiety Comment: - Appears to be controlled at this time. - Continue Paxil and Lorazepam PRN. - Will add PO Xanax PRN. (3) Hypothyroidism Comment: - TSH is 4.7 - continue Levothyroxine. (4) Morbid obesity Comment: - May benefit of referral to [facility] on discharge. (5) DVT prophylaxis Comment: - SQ heparin. (6) Full code status Status and Disposition: Inpatient for management of STEMI. Hospitalist service will continue to follow with you.
[2016-08-20] MEDS: Atorvastatin* 80 MG TAB PO SCH (18:20)
[2016-08-20 18:45] LABS: Potassium 4.1 mmol/L (3.5-5.0)
--- NOTE | 2016-08-20 20:55 | DS ---
PRELIMINARY DISCHARGE SUMMARY: DATE OF ADMISSION: 08/18/2016 DATE OF DISCHARGE: 08/21/2016 FINAL DIAGNOSES: 1. Non-ST elevation myocardial infarction. 2. Coronary artery disease. 3. Anxiety disorder. 4. Hypothyroidism. 5. Eating disorder. 6. Ascending aortic dilatation. 7. History of Hodgkin's disease. 8. Arthritis. HOSPITAL COURSE: The patient is a 61-year-old female who was at work on the day of admission and became very nauseated, diaphoretic, became very lightheaded. It appears that she lost consciousness as well with her coworker standing over her when she awakened. They checked her pulse and found it to be in the 40s, the EMS were called and one of their EKGs documented ST segment elevation in the inferior leads with ST segment depression in 1 and AVL. A STEMI alert was called at [facility] en route. On arrival, the patient was profoundly anxious and very difficult in attempts to control her emotions. She was not having any specific chest, throat jaw or arm discomfort and the nauseousness had left. A repeat EKG demonstrated the ST segment not to be elevated similar to other EKGs that the paramedics had on the way in. The discussion was made with the patient given the reversibility of ST segment elevation inferiorly that there was a need to proceed with cardiac catheterization and as such, the risks and benefits were explained to her and her . Despite her profound anxiety, she agreed to proceed. She was brought to the cardiovascular laboratory where a formal time-out was performed and cardiac catheterization was performed revealing a critically stenosed, 90% ruptured plaque appearance in her proximal to ostial right coronary artery. Of note, she had a moderate stepdown in the size of her left anterior descending artery from the hxzqmidt-kf-psr to the jak-tg-uzcqzm. The usb-io-ckoqco vessel did not become larger in size and stayed at the smaller level as did her diagonal branches. She underwent primary stenting of the gluayq-mq-vltfihfa lesion with placement of a 3.5 x 16 mm long Synergy drug- eluting stent postdilated to 3.65 mm with high pressure balloon inflations. Over the course of the hospitalization, she did reasonably well, although of note, she seemed to have a first-degree AV block and actually Wenckebach that was made worse by low-dose beta-blockers developing Wenckebach with more frequent Wenckebach. The beta-aure was held at this point. Of note, EKGs were obtained from her it security consultant, Dr. Jose Morales, at the [facility] and the EKG from 2013 and 2014 did not show a first- degree AV block. As such, beta-blockers were held and the patient was maintained on aspirin, Brilinta, high-dose statin therapy. The patient was eventually up and about and doing reasonably well. On the scheduled day of discharge, she developed profound anxiety and as such, Dr. Townsend, the hospitalist, was kind enough to transfer her to telemetry to watch for another 24 hours. PHYSICAL EXAMINATION: Physical examination on the day of anticipated discharge include stable vital signs with the blood pressure 125-130/75-80, pulse was in the 80s to 90s, O2 saturation was 94% on room air. Neck was supple. There was no increased JVP. Carotids without bruit. Conjunctivae are pink. Sclerae clear. Mouth revealed moist mucosa. Lungs were clear with no active rales, rhonchi, or wheezes. Heart had a regular rate and rhythm. There was a question of a soft distant systolic murmur. Abdomen was morbidly obese. Extremities were heavy bilaterally with no significant jaxon pitting edema. Of note, the right groin and the right radial artery sites from prior cardiac catheterization were well healed. Neuro: The patient was alert and oriented with fairly normal mentation. Musculoskeletal: The patient uses a walker to walk around. Psychological: The patient with anxiety and almost at times a very slow deliberate speech. During the hospitalization, the patient had an echocardiogram performed that revealed relatively normal left ventricular systolic function with an ejection fraction of 50% to 55%. There was no definitive focal wall motion abnormalities seen. There was dipk-xp-aifpyjbs concentric left ventricular hypertrophy with diastolic impaired relaxation. The left atrium was slightly enlarged. There was ghtd-ng-xhxounkv aortic regurgitation. There was mild aortic stenosis. There was zokb-za-kfwmckzk mitral regurgitation and mild tricuspid regurgitation and moderate pulmonic regurgitation. There was mild dilatation of the ascending aorta measured on this study at 3.6 cm and mild dilatation of the aortic root at 3.7. MEDICATIONS AT THE TIME OF THE INITIAL ANTICIPATED DISCHARGE: Included: 1. Aspirin 81 mg a day. 2. Lipitor 80 mg a day. 3. Levothyroxine 100 mcg a day. 4. Paxil 40 mg a day. 5. Brilinta 90 mg b.i.d. We will plan to see her back in the office in approximately 1 week after discharge and recheck the EKG and consider the timing of trying low-dose beta- blockers again with perhaps the Holter monitor as an outpatient to see if we exacerbate AV conduction. CC: Lexy Cartagena MD at the [facility] [place], [place]* [id number]/[facility]PS #: [id number] MTDD
[2016-08-21 05:07] LABS: Potassium 3.7 mmol/L (3.5-5.0)
[2016-08-21] MEDS: Heparin VIAL(*) 5000 UNITS/ML VIAL (FIVE THOUSAND) SUBCUT SCH (06:34)
[2016-08-21] MEDS: Ticagrelor* 90 MG TAB PO SCH (12:00)
[2016-08-21] MEDS: Levothyroxine TAB* 100 MCG TAB PO SCH (12:00)
[2016-08-21] MEDS: PARoxetine HCL TAB* 40 MG PO SCH (12:00)
[2016-08-21] MEDS: Aspirin Low Dose CHEW TAB* 81 MG PO SCH (12:00)
[2016-08-21 12:51] VITALS: BP 111/64
== END 2016-08-21 12:31 | disposition home or self-care (01) | DRG 174 ==
LOC: ED 15:22 → ICU 15:50 → MEDTELE 08-20 11:51
PROVIDERS: ADMIT Internal Medicine; ATTEND Internal Medicine Cardiovascular Disease
PROC: B2111ZZ Fluoroscopy of Multiple Coronary Arteries using Low Osmolar Contrast (ICD-10-PCS; 2016-08-18)
PROC: 027034Z Dilation of Coronary Artery, One Artery with Drug-eluting Intraluminal Device, Percutaneous Approach (ICD-10-PCS; 2016-08-18)
PROC: 5A09357 Assistance with Respiratory Ventilation, Less than 24 Consecutive Hours, Continuous Positive Airway Pressure (ICD-10-PCS; 2016-08-18)
PROC: 4A023N7 Measurement of Cardiac Sampling and Pressure, Left Heart, Percutaneous Approach (ICD-10-PCS; principal; 2016-08-18 14:00)
DX: I21.19 ST elevation (STEMI) myocardial infarction involving other coronary artery of inferior wall (principal); I71.2 Thoracic aortic aneurysm, without rupture; I25.10 Atherosclerotic heart disease of native coronary artery without angina pectoris; F41.9 Anxiety disorder, unspecified; E03.9 Hypothyroidism, unspecified; F50.9 Eating disorder, unspecified; Z85.71 Personal history of Hodgkin lymphoma; M19.90 Unspecified osteoarthritis, unspecified site; I44.0 Atrioventricular block, first degree; Z79.82 Long term (current) use of aspirin; E66.01 Morbid (severe) obesity due to excess calories; F32.9 Major depressive disorder, single episode, unspecified; Z82.49 Family history of ischemic heart disease and other diseases of the circulatory system; Z82.3 Family history of stroke
CPT/HCPCS: 36415; 71010; 80053; 80061; 82550; 82553; 83036; 83605; 83721; 83735; 83874; 83880; 84132; 84443; 84484; 85025; 85610; 85730; 86850; 86900; 86901; 93005; 93306; 93458; 94660; 94760; A9270-GY; C1725; C1760; C1769; C1876; C1887; C9600-RC; C9606-RC; J0583; J1644; J2060; J2250; J3010

== ENCOUNTER 2016-12-08 09:51 | Emergency (ER) | payer BC ==
[2016-12-08 10:05] VITALS: BP 118/82
--- NOTE | 2016-12-08 10:26 | UC ---
Lower Extremity/Ankle HPI - HPI Summary HPI Summary: noted a lump behind her right lower leg just under the knee x 1 day , mild tenderness, no calf pain , no calf redness, no cough , no sob , no recent travel , not a smoker - History of Current Complaint Chief Complaint: UCLowerExtremity Stated Complaint: RIGHT LEG COMPLAINT Time Seen by Provider: 12/08/16 10:11 Hx Obtained From: Patient Hx Last Menstrual Period: years ago Onset/Duration: Gradual Onset, Lasting Days - 1, Still Present Severity Initially: Moderate Severity Currently: Moderate Aggravating Factor(s): Nothing Alleviating Factor(s): Nothing Able to Bear Weight: Yes - Risk Factors DVT Risk Factors: Negative - Allergies/Home Medications Allergies/Adverse Reactions: Allergies Allergy/AdvReac Type Severity Reaction Status Date / Time No Known Allergies Allergy Verified 12/08/16 10:05 Home Medications: Home Medications Clopidogrel TAB* [Plavix TAB*] 1 tab PO DAILY 12/08/16 [History Confirmed ] Metoprolol Succinate XL TAB* [Toprol XL TAB*] 1 tab PO DAILY 12/08/16 [History Confirmed 12/08/16] PMH/Surg Hx/FS Hx/Imm Hx Endocrine History Of: Reports: Thyroid Disease Denies: Diabetes Cardiovascular History Of: Reports: Cardiac Disorders - Aug 2016 [place] stent placed Denies: Hypertension, Pacemaker/ICD, Congestive Heart Failure, Deep Vein Thrombosis Respiratory History Of: Reports: COPD, Asthma, Pneumonia Denies: Pulmonary Embolism GI/ History Of: Denies: Ulcer, Gastrointestinal Bleed, Gall Bladder Disease, Kidney Stones Neurological History Of: Denies: TIA, CVA, Dementia, Seizures, Migraine Psychological History Of: Reports: Anxiety, Depression Denies: Bipolar Disorder, Schizophrenia Cancer History Of: Denies: Lung Cancer Other History Of: Negative For: Anticoagulant Therapy - Surgical History Surgical History: Yes Surgery Procedure, Year, and Place: LYMPH NODE BIOPSYS, LUNG BIOPSY, CARPAL ESTEPHANIE, stents 2015 - Family History Known Family History: Negative: Diabetes Family History: Unable to obtain, becaues of STEMI and severity. - Social History Alcohol Use: None Substance Use Type: None Smoking Status (MU): Never Smoked Tobacco Have You Smoked in the Last Year: No - Immunization History Most Recent Influenza Vaccination: May2016 Most Recent Tetanus Shot: not within last 5 years Most Recent Pneumonia Vaccination: never Review of Systems Constitutional: Negative Skin: Negative Eyes: Negative ENT: Negative Respiratory: Negative Cardiovascular: Negative Gastrointestinal: Negative Genitourinary: Negative All Other Systems Reviewed And Are Negative: Yes Physical Exam Triage Information Reviewed: Yes Appearance: Well-Appearing, No Pain Distress, Obese Vital Signs: Initial Vital Signs Temp 97.6 F 12/08/16 09:55 Pulse 86 12/08/16 09:55 Resp 16 12/08/16 09:55 BP 118/82 12/08/16 09:55 Pulse Ox 98 12/08/16 09:55 Vital Signs Reviewed: Yes Eyes: Positive: Conjunctiva Clear ENT: Positive: Normal ENT inspection, Hearing grossly normal, Pharynx normal Neck: Positive: Supple, Nontender, No Lymphadenopathy Respiratory: Positive: Chest non-tender, Lungs clear, Normal breath sounds Cardiovascular: Positive: RRR, No Murmur, Pulses Normal Abdomen Description: Positive: Nontender, Soft Musculoskeletal Exam: Normal Musculoskeletal: Positive: Strength Intact, ROM Intact, No Edema, Other: - right lower leg : + cystic lumb with mild ecchymosis, mild tedernss, no calf tenderness, no calf redness, negative vinny sign Lower Extremity Course/Dx - Differential Dx/Diagnosis Provider Diagnoses: varicose veins Discharge - Discharge Plan Condition: Stable Disposition: HOME Patient Education Materials: Varicose Veins (ED) Referrals: Justice Devlin MD [Primary Care Provider] - 7 Days Additional Instructions: localized lump on right calf , mild tenderness, no signs or symptoms of DVT may use warm compresses
== END 2016-12-08 10:30 | disposition home or self-care (01) ==
LOC: UCCORT 09:51
DX: I83.91 Asymptomatic varicose veins of right lower extremity (principal); E07.9 Disorder of thyroid, unspecified; I25.2 Old myocardial infarction; Z95.5 Presence of coronary angioplasty implant and graft; J44.9 Chronic obstructive pulmonary disease, unspecified; F41.8 Other specified anxiety disorders; E66.9 Obesity, unspecified
CPT/HCPCS: 99211; G0463

== ENCOUNTER 2018-08-16 14:21 | Emergency (ER) | payer BC ==
--- NOTE | 2018-08-16 14:47 | ED ---
HPI Chest Pain - HPI Summary HPI Summary: A 63 y/o female presents to [facility] with a chief complaint of many episodes of intermittent chest pain which would last a couple of seconds since 13:20 . She claims that she has been doing a physical job all day and her coworker noticed that she was grabbing her chest and became concerned. The patient had an [place] 2 years [employer] and Dr. Whitten put in a stent. Dr. Whittaker is her bottle washer. She was given NTG en route which has reduced her stabbing pain, but it is still presents. She also c/o swelling in her legs but claims that this is normal for her. She rates her pain as a 5/10. - History of Current Complaint Chief Complaint: EDChestPainROMI Time Seen by Provider: 08/16/18 14:36 Hx Obtained From: Patient, Family/University Administrative Assistant Hx Last Menstrual Period: years ago Onset/Duration: Started Minutes Ago, Still Present Timing: Intermittent, Lasting Seconds Initial Severity: Moderate Current Severity: Moderate Pain Intensity: 5 Pain Scale Used: 0-10 Numeric Chest Pain Location: Diffuse Chest Pain Radiates: No Character: Sharp/Stabbing Aggravating Factor(s): Nothing Alleviating Factor(s): Nothing Associated Signs and Symptoms: Positive: Calf Pain/Swelling - Additional Pertinent History Primary Care Physician: CRISTAL - Allergy/Home Medications Allergies/Adverse Reactions: Allergies Allergy/AdvReac Type Severity Reaction Status Date / Time No Known Allergies Allergy Verified 12/08/16 10:05 Home Medications: Home Medications Aspirin EC TAB* [Ecotrin EC Low Dose 81 MG*] 162 mg PO DAILY 08/16/18 [History Confirmed 08/16/18] Levothyroxine TAB* [Synthroid TAB*] 75 mcg PO DAILY 08/16/18 [History Confirmed 08/16/18] Metoprolol Succinate XL TAB* [Toprol XL TAB*] 50 mg PO DAILY 08/16/18 [History Confirmed 08/16/18] PARoxetine HCL TAB* [Paxil TAB*] 20 mg PO DAILY 08/16/18 [History Confirmed ] PMH/Surg Hx/FS Hx/Imm Hx Endocrine/Hematology History: Reports: Hx Blood Disorders - Hodgkin's lymphoma, Hx Thyroid Disease Denies: Hx Anticoagulant Therapy, Hx Blood Transfusions, Hx Bone Marrow Disease, Hx Diabetes, Hx Systemic Lupus Erythematosus, Hx Sickle Cell Disease, Hx Anemia, Hx Unexplained Bleeding, Other Endocrine/Hematological Disorders Cardiovascular History: Reports: Hx Aneurysm - 3.7 cm thoracic, Hx Syncope - Today only, Hx Valvular Heart Disease - MR, Other Cardiovascular Problems/ Disorders - AORTIC ANEURYSM Denies: Hx Angina, Hx Angioplasty, Hx Auto Implanted Cardiovert Defib, Hx Cardiac Arrest, Hx Cardiomegaly, Hx Congenital Heart Disease, Hx Congestive Heart Failure, Hx Coronary Artery Disease, Hx Deep Vein Thrombosis, Hx Embolism , Hx Hypercholesterolemia, Hx Hypotension, Hx Hypertension, Hx Pacemaker/ICD, Hx Peripheral Vascular Disease, Hx Rheumatic Fever Respiratory History: Reports: Hx Asthma, Hx Chronic Obstructive Pulmonary Disease (COPD), Hx Pneumonia, Hx Seasonal Allergies, Hx Sleep Apnea - cpap mask at home, Other Respiratory Problems/Disorders - pneumothorax post open lung bx 1993 Denies: Hx Chronic Bronchitis, Hx Cystic Fibrosis, Hx Lung Cancer, Hx Pleural Effusion, Hx Pulmonary Edema, Hx Pulmonary Embolism GI History: Denies: Hx Cirrhosis, Hx Crohn's Disease, Hx Diverticulosis, Hx Gall Bladder Disease, Hx Gastroesophageal Reflux Disease, Hx Gastrointestinal Bleed, Hx Hiatal Hernia, Hx Irritable Bowel, Hx Jaundice, Hx Obstructive Bowel, Hx Ileostomy, Hx Pyloric Stenosis, Hx Ulcer, Other GI Disorders History: Denies: Hx Acute Renal Failure, Hx Benign Prostatic Hyperplasia, Hx Chronic Renal Failure, Hx Dialysis, Hx Kidney Infection, Hx Kidney Stones, Other Problems/Disorders Musculoskeletal History: Denies: Hx Arthritis, Hx Back Problems, Hx Bursitis, Hx Congenital Bone Abnormalities, Hx Fibromyalgia, Hx Gout, Hx Orthopedic Injury, Hx Osteoporosis, Hx Scoliosis, Hx Tendonitis, Other Musculoskeletal History Sensory History: Reports: Hx Contacts or Glasses, Hx Hearing Problem - Hard of hearing per pt Denies: Hx Cataracts, Hx Eye Injury, Hx Eye Prosthesis, Hx Glaucoma, Hx Legally Blind, Hx Macular Degeneration, Hx Vision Problem, Hx Deafness, Hx Hearing Aid, Other Sensory Impairments Opthamlomology History: Reports: Hx Contacts or Glasses Denies: Hx Cataracts, Hx Eye Injury, Hx Eye Prosthesis, Hx Glaucoma, Hx Legally Blind, Hx Macular Degeneration, Hx Vision Problem, Other Sensory Impairments Neurological History: Denies: Hx Dementia, Hx Developmental Delay, Hx Headaches, Hx Migraine, Hx Nerve Disease, Hx Seizures, Hx Spinal Cord Injury, Hx Transient Ischemic Attacks (TIA), Other Neuro Impairments/Disorders Psychiatric History: Reports: Hx Anxiety, Hx Eating Disorder, Hx Depression Denies: Hx Attention Deficit Hyperactivity Disorder, Hx Panic Disorder, Hx Post Traumatic Stress Disorder, Hx Inpatient Treatment, Hx Community Mental Health Tx, Hx Schizophrenia, Hx Bipolar Disorder, Hx Suicide Attempt, Hx of Violent Episodes Against Others, Hx Substance Abuse, Other Psychiatric Issues/ Disorders - Cancer History Cancer Type, Location and Year: hodgkins lymphoma 1980s. hyperlipidemia Hx Chemotherapy: Yes Hx Radiation Therapy: Yes - Surgical History Surgery Procedure, Year, and Place: LYMPH NODE BIOPSYS, LUNG BIOPSY, CARPAL ESTEPHANIE, stents 2016 Hx Anesthesia Reactions: No Infectious Disease History: No Infectious Disease History: Denies: Hx Clostridium Difficile, Hx Hepatitis, Hx Human Immunodeficiency Virus (HIV), Hx of Known/Suspected MRSA, Hx Shingles, Hx Tuberculosis, History Other Infectious Disease, Traveled Outside the [place] in Last 30 Days - Family History Known Family History: Negative: Diabetes - Social History Alcohol Use: None Hx Substance Use: No Substance Use Type: Reports: None Hx Tobacco Use: No Smoking Status (MU): Never Smoked Tobacco Have You Smoked in the Last Year: No Review of Systems Positive: Chest Pain Positive: Edema - legs All Other Systems Reviewed And Are Negative: Yes Physical Exam - Summary Physical Exam Summary: Appearance: The patient is morbidly obese in no acute distress and in no acute pain. Skin: The skin is warm and dry and skin color reflects adequate perfusion. HEENT: The head is normocephalic and atraumatic. The pupils are equal and reactive. The conjunctivae are clear and without drainage. Nares are patent and without drainage. Mouth reveals moist mucous membranes and the throat is without erythema and exudate. The external ears are intact. The ear canals are patent and without drainage. The tympanic membranes are intact. Neck: The neck is supple with full range of motion and non-tender. There are no carotid bruits. There is no neck vein distension. Respiratory: Chest is non-tender. Lungs are clear to auscultation and breath sounds are symmetrical and equal. Cardiovascular: Heart is regular rate and rhythm. There is no murmur or rub auscultated. There is no peripheral edema and pulses are symmetrical and equal. Abdomen: The abdomen is soft and non-tender. There are normal bowel sounds heard in all four quadrants and there is no organomegaly palpated. Musculoskeletal: There is no back tenderness noted. Extremities are non-tender with full range of motion. There is good capillary refill. There is no peripheral edema or calf tenderness elicited. Neurological: Patient is alert and oriented to person, place and time. The patient has symmetrical motor strength in all four extremities. Cranial nerves are grossly intact. Deep tendon reflexes are symmetrical and equal in all four extremities. Psychiatric: The patient has an appropriate affect and does not exhibit any anxiety or depression. Triage Information Reviewed: Yes Vital Signs On Initial Exam: Initial Vitals Temp Pulse Resp BP Pulse Ox 99.2 F 79 18 110/59 95 08/16/18 14:29 08/16/18 14:29 08/16/18 14:29 08/16/18 14:29 08/16/18 14:29 Vital Signs Reviewed: Yes Diagnostics - Vital Signs Vital Signs Temp Pulse Resp BP Pulse Ox 08/16/18 14:29 99.2 F 79 18 110/59 95 - Laboratory Result Diagrams: 08/16/18 15:35 08/16/18 15:35 Lab Statement: Any lab studies that have been ordered have been reviewed, and results considered in the medical decision making process. - Radiology CXR Radiology Interpretation Completed By: Radiologist Summary of Radiographic Findings: BORDERLINE CARDIOMEGALY. ED provider has reviewed this imaging report. - EKG 14:25 Cardiac Rate: NL - 82 bpm EKG Rhythm: Sinus Rhythm Summary of EKG Findings: Normal sinus rhythm at 82 bpm with LAD, supraventricular bigeminy, left anterior fascicular block. Re-Evaluation - Re-Evaluation First Eval Re-Evaluation Time: 15:45 Change: Unchanged Comment: Chest pain is still intermittent Second Eval Re-Evaluation Time: 19:31 Change: Improved Comment: Patient is ready for discharge. Chest Pain Course/Dx - Course Course Of Treatment: Ms. Branch presented to the emergency department with an atypical chest pain. It was not accompanied by any associated symptoms. It was a sharp transient pain that was coming fairly frequently at least every few minutes. It lasted only seconds. She was nontoxic in appearance and her vital signs were stable. She did have chest wall tenderness in the area. She was worked up with chest x-ray, EKG and labs including a d-dimer and a delayed troponin. This was all negative. I discussed the situation with Dr. Redman who felt that she could be safely discharged to follow up with Dr. Whittaker. - Diagnoses Provider Diagnoses: Chest pain - Provider Notifications Discussed Care Of Patient With: Rey Redman Time Discussed With Above Provider: 18:25 Instructed by Provider To: Other - Discussed the case with Dr. Redman Discharge - Sign-Out/Discharge Documenting (check all that apply): Patient Departure - DC - Discharge Plan Condition: Stable Disposition: HOME Forms: *Work Release Referrals: Evonne Siddiqui MD [Primary Care Provider] - (2-3 days) Clive Whittaker DO [Medical Doctor] - (2-3 days) Additional Instructions: Follow up with Dr. Whittaker. Return to the ED if you experience any new or worsening symptoms. - Billing Disposition and Condition Condition: STABLE Disposition: Home - Attestation Statements Document Initiated by Adrienne: Yes Documenting Scribe: Yasmani Spencer Provider For Whom Adrienne is Documenting (Include Credential): Suhail Grissom MD Scribe Attestation: IYasmani scribed for Suhail Grissom MD on 08/16/18 at 2130. Scribe Documentation Reviewed: Yes Provider Attestation: The documentation as recorded by the Yasmani joseph accurately reflects the service I personally performed and the decisions made by me, Suhail Grissom MD Status of Scribe Document: Viewed
[2018-08-16 15:56] LABS: ABS Basophils 0.1 10^3/ul (0-0.2); ABS Eosinophils 0.3 10^3/ul (0-0.6); ABS Lymphocytes 1.8 10^3/ul (1.0-4.8); ABS Monocytes 0.6 10^3/ul (0-0.8); ABS Neutrophils 4.8 10^3/ul (1.5-7.7); ABS Nucleated RBC 0 10^3/ul; Eosinophil % 3.5 %; Hematocrit 35 % (35-47); Hemoglobin 11.5 g/dl (12.0-16.0); Lymphocyte % 23.6 %; Mean Corpuscular HGB Conc 33 g/dl (31-36); Mean Corpuscular Hemoglobin 27 pg (27-31); Mean Corpuscular Volume 84 fL (80-97); Mean Platelet Volume 9.3 fL (7.4-10.4); Nucleated Red Blood Cells % 0.1; Platelet Count 211 10^3/ul (150-450); Red Blood Count 4.19 10^6/ul (4.00-5.40); Red Cell Distribution Width 17 % (10.5-15); White Blood Count 7.6 10^3/ul (3.5-10.8)
[2018-08-16 16:01] LABS: INR 0.97 (0.77-1.02)
[2018-08-16 16:35] LABS: Albumin 3.9 g/dL (3.2-5.2); Albumin/Globulin Ratio 1.3 (1-3); BUN/Creatinine Ratio 25.3 (8-20); Calcium 9.2 mg/dL (8.6-10.3); EGFR Non-African American 62.4 (>60); Potassium 4.6 mmol/L (3.5-5.0); Total Bilirubin 0.5 mg/dL (0.2-1.0); Total Protein 6.9 g/dL (6.4-8.9)
[2018-08-16 16:53] LABS: TSH (Thyroid Stimulating Horm) 3.22 mcIU/mL (0.34-5.60)
[2018-08-16 20:01] VITALS: BP 122/74
== END 2018-08-16 20:00 | disposition home or self-care (01) ==
LOC: ED 14:21
DX: R07.9 Chest pain, unspecified (principal); F32.9 Major depressive disorder, single episode, unspecified; F41.9 Anxiety disorder, unspecified; E78.5 Hyperlipidemia, unspecified; Z85.72 Personal history of non-Hodgkin lymphomas; I44.4 Left anterior fascicular block
CPT/HCPCS: 36415; 71045; 80053; 83605; 84443; 84484; 85025; 85379; 85610; 93005; 99284

== ENCOUNTER 2023-10-07 21:25 | Observation (INO) ==
[2023-10-07 23:05] LABS: INR 1.15 (0.83-1.13)
[2023-10-07 23:07] LABS: ABS Basophils 0.1 10^3/uL (0.0-0.1); ABS Eosinophils 0.4 10^3/uL (0.0-0.5); ABS Lymphocytes 1.6 10^3/uL (1.0-4.8); ABS Monocytes 0.8 10^3/uL (0.0-0.9); ABS Neutrophils 6.2 10^3/uL (1.5-7.6); Hematocrit 23.4 % (35-45); Hemoglobin 7.2 g/dL (11.5-14.3); Lymphocyte % 18.2 %; Mean Corpuscular Hemoglobin 22.4 pg (27-33); Mean Corpuscular Hgb Conc 30.9 g/dL (31-36); Mean Corpuscular Volume 72.5 fL (80-97); Mean Platelet Volume 8.6 fL (7.5-11.2); Platelet Count 285 10^3/uL (150-450); Red Blood Count 3.23 10^6/uL (3.63-4.92); Red Cell Distribution Width 17.6 % (12-17); White Blood Count 9.1 10^3/uL (3.8-11.8)
[2023-10-07 23:29] LABS: ALT 9 U/L (7-52); AST 13 U/L (13-39); Albumin 4.2 g/dL (3.2-5.2); Albumin/Globulin Ratio 1.4 (1-3); Alkaline Phosphatase 128 U/L (35-149); Anion Gap 9 mmol/L (2-16); Blood Urea Nitrogen 21 mg/dL (6-24); CO2 Carbon Dioxide 25 mmol/L (22-32); Calcium 9.1 mg/dL (8.6-10.3); Chloride 104 mmol/L (101-111); Creatinine, Serum 0.91 mg/dL (0.51-0.95); Glucose 107 mg/dL (70-100); Potassium 3.7 mmol/L (3.5-5.0); Sodium 138 mmol/L (135-145); Total Bilirubin 0.7 mg/dL (0.2-1.0); Total Protein 7.2 g/dL (6.4-8.9); eGFR CKD-EPI 68.7 (>60)
[2023-10-08] MEDS ORDERED: Albuterol HFA INHALER 8 gm MDI INH PRN (01:24)
[2023-10-08] MEDS ORDERED: Senna TAB 8.6 mg TAB PO PRN (02:43)
[2023-10-08] MEDS ORDERED: Ondansetron 4 mg VIAL 2 MG/ML 2 ml VIAL IV PRN (02:43)
[2023-10-08] MEDS ORDERED: Polyethylene Glycol 3350 17 GM PACKET PO PRN (02:43)
[2023-10-08 02:49] LABS: Corrected Retic Count 0.4 % (0.5-2.2); Hematocrit for Retic CNT 7.2 % (35-45); RBC Retic Count 3.23 10^6/ul (3.63-4.92)
[2023-10-08] MEDS: Pantoprazole VIAL 40 MG VIAL IV SCH (02:55)
[2023-10-08 02:56] LABS: % Iron Saturation 4 % (15-55); .Transferrin 385 mg/dL (203-362); Iron < 20 ug/dL (50-212); LDH 153 U/L (140-271); Total Iron Binding Capacity 539 mcg/dL (250-450); Unsaturated Iron Binding 519 ug/dL
[2023-10-08 03:15] LABS: Ferritin 5.6 ng/mL (11-307)
[2023-10-08 03:46] LABS: Anisocytosis 1+; Macrocytosis 1+; Microcytosis 1+
[2023-10-08 03:47] LABS: Polychromasia 1+
[2023-10-08 06:32] LABS: ABS Basophils 0.1 10^3/uL (0.0-0.1); ABS Eosinophils 0.3 10^3/uL (0.0-0.5); ABS Lymphocytes 1.2 10^3/uL (1.0-4.8); ABS Monocytes 0.7 10^3/uL (0.0-0.9); ABS Neutrophils 4.7 10^3/uL (1.5-7.6); ABS Nucleated RBC 0.01 10^3/ul; Eosinophil % 4.3 %; Hemoglobin 7.3 g/dL (11.5-14.3); Lymphocyte % 17.7 %; Mean Corpuscular Hemoglobin 23.2 pg (27-33); Mean Corpuscular Hgb Conc 31.5 g/dL (31-36); Mean Corpuscular Volume 73.7 fL (80-97); Mean Platelet Volume 8.6 fL (7.5-11.2); Nucleated Red Blood Cells % 0.1 %/100WBC (0.0-0.8); Platelet Count 237 10^3/uL (150-450); Red Blood Count 3.13 10^6/uL (3.63-4.92); Red Cell Distribution Width 18.5 % (12-17)
[2023-10-08 07:08] LABS: Calcium 8.7 mg/dL (8.6-10.3); Creatinine, Serum 0.83 mg/dL (0.51-0.95); Magnesium 2.2 mg/dL (1.9-2.7); Potassium 3.7 mmol/L (3.5-5.0); eGFR CKD-EPI 76.7 (>60)
[2023-10-08] MEDS ORDERED: Lactated Ringers 1000 ml BAG 1,000 ML IV SCH (08:00)
[2023-10-08] MEDS ORDERED: Iron Sucrose 20 MG/ML 5 ML VIAL IV PUSH SCH (09:00)
[2023-10-08] MEDS: Cholecalciferol (VIT D3) 1,000 unit TAB PO SCH (09:14)
[2023-10-08] MEDS: Aspirin EC 81 mg TAB.EC (enteric coated) PO SCH (09:14)
[2023-10-08] MEDS: Iron Sucrose 200 MG in NS 0.9% 100 ml IVPB SCH (09:23)
[2023-10-08] MEDS ORDERED: fentaNYL 100 mcg/2 ml 50 MCG/ML VIAL ONE ×2 (14:51→15:19)
[2023-10-08] MEDS ORDERED: Midazolam 10 mg/10 ml VIAL 1 mg/ml 10 ml VIAL (10 mg) ONE ×2 (14:51→15:19)
[2023-10-08 17:38] LABS: ABS Basophils 0.1 10^3/uL (0.0-0.1); ABS Eosinophils 0.3 10^3/uL (0.0-0.5); ABS Lymphocytes 1.2 10^3/uL (1.0-4.8); ABS Monocytes 0.8 10^3/uL (0.0-0.9); ABS Neutrophils 5.8 10^3/uL (1.5-7.6); ABS Nucleated RBC 0.01 10^3/ul; Eosinophil % 3.5 %; Hematocrit 27.3 % (35-45); Hemoglobin 8.6 g/dL (11.5-14.3); Lymphocyte % 14.3 %; Mean Corpuscular Hemoglobin 23.9 pg (27-33); Mean Corpuscular Hgb Conc 31.6 g/dL (31-36); Mean Corpuscular Volume 75.8 fL (80-97); Mean Platelet Volume 8.7 fL (7.5-11.2); Nucleated Red Blood Cells % 0.1 %/100WBC (0.0-0.8); Platelet Count 262 10^3/uL (150-450); Red Blood Count 3.61 10^6/uL (3.63-4.92); Red Cell Distribution Width 18.6 % (12-17); White Blood Count 8.2 10^3/uL (3.8-11.8)
[2023-10-08 19:10] LABS: Folate 6.85 ng/mL (5.90-24.80)
[2023-10-09 05:40] LABS: ABS Basophils 0.1 10^3/uL (0.0-0.1); ABS Eosinophils 0.3 10^3/uL (0.0-0.5); ABS Lymphocytes 1.1 10^3/uL (1.0-4.8); ABS Monocytes 0.9 10^3/uL (0.0-0.9); ABS Neutrophils 6.2 10^3/uL (1.5-7.6); ABS Nucleated RBC 0.05 10^3/ul; Eosinophil % 3.7 %; Hematocrit 25.4 % (35-45); Lymphocyte % 12.9 %; Mean Corpuscular Hemoglobin 23.6 pg (27-33); Mean Corpuscular Hgb Conc 31.7 g/dL (31-36); Mean Corpuscular Volume 74.7 fL (80-97); Mean Platelet Volume 8.7 fL (7.5-11.2); Nucleated Red Blood Cells % 0.6 %/100WBC (0.0-0.8); Platelet Count 235 10^3/uL (150-450); Red Cell Distribution Width 18.8 % (12-17); White Blood Count 8.6 10^3/uL (3.8-11.8)
[2023-10-09 05:55] LABS: Calcium 8.9 mg/dL (8.6-10.3); Creatinine, Serum 0.92 mg/dL (0.51-0.95); Potassium 4.3 mmol/L (3.5-5.0); eGFR CKD-EPI 67.8 (>60)
[2023-10-09] MEDS: Cyanocobalamin INJ 1,000 MCG/ML VIAL 1 ML VIAL IM ONE (10:29)
[2023-10-09 12:48] LABS: ABS Basophils 0.2 10^3/uL (0.0-0.1); ABS Eosinophils 0.3 10^3/uL (0.0-0.5); ABS Lymphocytes 1.2 10^3/uL (1.0-4.8); ABS Monocytes 0.9 10^3/uL (0.0-0.9); ABS Neutrophils 8.9 10^3/uL (1.5-7.6); ABS Nucleated RBC 0.11 10^3/ul; Eosinophil % 2.7 %; Hematocrit 27.1 % (35-45); Hemoglobin 8.4 g/dL (11.5-14.3); Lymphocyte % 10.2 %; Mean Corpuscular Hemoglobin 23.6 pg (27-33); Mean Platelet Volume 8.8 fL (7.5-11.2); Platelet Count 281 10^3/uL (150-450); Red Blood Count 3.57 10^6/uL (3.63-4.92); Red Cell Distribution Width 19.2 % (12-17); White Blood Count 11.3 10^3/uL (3.8-11.8)
[2023-10-09 14:26] VITALS: BP 146/95
== END 2023-10-09 16:38 | disposition home or self-care (01) ==
LOC: ED 21:25 → EDHOLD 10-08 → INTOOBSV 10-08 → MED 10-08 01:05
PROVIDERS: ADMIT Internal Medicine; ATTEND Internal Medicine

== ENCOUNTER 2024-07-29 16:50 | Inpatient (IN) ==
[2024-07-29 17:21] LABS: ABS Basophils 0.1 10^3/uL (0.0-0.1); ABS Eosinophils 0.3 10^3/uL (0.0-0.5); ABS Lymphocytes 1.5 10^3/uL (1.0-4.8); ABS Monocytes 0.6 10^3/uL (0.0-0.9); ABS Neutrophils 5.4 10^3/uL (1.5-7.6); ABS Nucleated RBC 0.01 10^3/ul; Eosinophil % 3.2 %; Hematocrit 32.2 % (35-45); Hemoglobin 10.7 g/dL (11.5-14.3); Lymphocyte % 18.8 %; Mean Corpuscular Hemoglobin 27.8 pg (27-33); Mean Corpuscular Hgb Conc 33.1 g/dL (31-36); Mean Corpuscular Volume 83.9 fL (80-97); Mean Platelet Volume 9.2 fL (7.5-11.2); Nucleated Red Blood Cells % 0.1 %/100WBC (0.0-0.8); Platelet Count 238 10^3/uL (150-450); Red Blood Count 3.83 10^6/uL (3.63-4.92); Red Cell Distribution Width 17.5 % (12-17); White Blood Count 7.9 10^3/uL (3.8-11.8)
[2024-07-29 17:28] LABS: INR 1.24 (0.85-1.14)
[2024-07-29 18:12] LABS: Albumin/Globulin Ratio 1.4 (1-3); Calcium 9.5 mg/dL (8.6-10.3); Creatinine, Serum 1.08 mg/dL (0.51-0.95); Globulin 2.9 g/dL (2-4); Potassium 4.5 mmol/L (3.5-5.0); Total Protein 6.9 g/dL (6.4-8.9); eGFR CKD-EPI 55.6 (>60)
[2024-07-29 18:47] LABS: High Sensitivity Troponin 1 Hr 10 pg/mL (<15)
[2024-07-29] MEDS: Furosemide 40 mg/4 ml IV VIAL IV SLOW PU ONE (20:27)
[2024-07-29] MEDS ORDERED: Albuterol HFA INHALER 8 gm MDI INH PRN (22:52)
[2024-07-29] MEDS: Enoxaparin 40 MG/0.4 ML SYR SUBCUT SCH (23:41)
[2024-07-29] MEDS ORDERED: Senna TAB 8.6 mg TAB PO PRN (23:56)
[2024-07-29] MEDS ORDERED: Sulfur Hexaflouride MICROSPHR 25 MG VIAL IV PRN (23:58)
[2024-07-30 03:00] LABS: Magnesium 2.1 mg/dL (1.9-2.7)
[2024-07-30] MEDS: Aspirin EC 81 mg TAB.EC (enteric coated) PO SCH (08:03)
[2024-07-30 10:35] LABS: TSH Ultra Thyroid Stim Horm 4.07 mcIU/mL (0.34-5.60)
[2024-07-30 11:34] LABS: High Sensitivity Troponin 1 Hr 10 pg/mL (<15)
[2024-07-30 12:40] LABS: HDL Cholesterol 33.9 mg/dL
[2024-07-30 13:01] LABS: Ferritin 14.6 ng/mL (11-307)
[2024-08-01 01:50] VITALS: BP 100/66
== END 2024-08-01 03:46 | disposition short-term general hospital (02) | DRG 282 ==
LOC: EDHOLD 16:50 → ED 16:50 → SUATTDRO 22:47 → MED 07-30 00:28 → MEDTELE 07-30 02:52
PROVIDERS: ADMIT Internal Medicine; ATTEND Student in an Organized Health Care Education/Training Program